=== PATIENT | male | born 2000 | race Caucasian/White ===

== ENCOUNTER 2023-11-04 06:06 | Emergency (ER) | payer BC, SELFPAY ==
[2023-11-04 06:08] VITALS: BP 162/111
[2023-11-04 07:37] VITALS: BMI 36.7
[2023-11-04 07:43] VITALS: BP 139/84
[2023-11-04] MEDS: TORADOL 30 MG IV (07:46)
[2023-11-04] MEDS: ZOFRAN 4 MG IV (07:46)
[2023-11-04 08:00] VITALS: BP 132/94
[2023-11-04 08:16] LABS: % Basophils 0.3 % (0-2); % Eosinophils 0.2 % (0-6); % Immature Granulocytes 0.4 % (0-0.5); % Lymphocytes 9.9 % (20.5-51.1); % Neutrophils 82.2 % (42.2-75.2); Absolute Immature Granulocytes 0.1 10^3/uL (0-0.05); Absolute Lymphocytes 1.2 10^3/uL (1.2-3.4); Absolute Monocytes 0.8 10^3/uL (0.1-0.6); Absolute Neutrophils 9.6 10^3/uL (1.4-6.5); Hematocrit 42.2 % (39.0-52.0); Hemoglobin 14.4 g/dL (13.0-18.0); Mean Corp Hgb Conc. 34.1 g/dL (33.0-37.0); Mean Corpuscular Hgb 29.8 pg (27.0-31.0); Mean Corpuscular Volume 87.4 fL (80.0-94.0); Mean Platelet Volume 8.4 fL (7.4-10.4); Nucleated Red Blood Cells % 0 % (-); Platelet Count 330 10^3/uL (130-400); Red Blood Cell Count 4.83 10^6/uL (4.70-6.10); Red Cell Dist. Width 13.8 % (11.5-14.5); White Blood Cell Count 11.7 10^3/uL (4.8-10.8)
--- NOTE | 2023-11-04 08:21 | ED.GENMED ---
History of Present Illness
General
Chief Complaint: Abdominal Pain
Source: patient
Time Seen by Provider: 11/04/23 07:21
Travel History
Have you had any contact with someone who has COVID-19?: No
Do you have any symptoms of coronavirus? Fever > 100 degrees, chills, cough, shortness of breath, sore throat, loss of taste or smell, muscle aches, or headache?: No
History of Present Illness
History of Present Illness:
22-year-old male presents with left lower abdominal pain starting 2 days ago intermittent since then. Today the pain increased and there was associated vomiting. No flank pain pain starts in the abdomen occasionally radiates to the groin but
denies significant testicular pain. No urinary symptoms. No fever. No other complaints at this time
Phy Exam
Physical Exam
Physical Exam:
General: Well-appearing male no acute respiratory distress
HEENT: Normocephalic atraumatic neck is supple
Heart: Regular rate and rhythm no murmurs
Lungs: Clear to auscultation bilaterally no wheezing
Abdomen: Soft tender to left lower no guarding rebound normal bowel sounds nondistended no costovertebral angle tenderness
exam. Circumcised male. Cremasteric reflex intact bilaterally no testicular swelling or discomfort or tenderness
Extremities: No
Course
Orders/Labs/Results
Orders:
Orders
11/04/23 07:36
Ketorolac [Toradol] 30 mg IV NOW STA
Ondansetron Injectable [Zofran] 4 mg IV NOW STA
11/04/23 07:39
CT Abd/pelvis W Iv Cont Urgent
Comment:
Reason For Exam: llq pain
11/04/23 07:47
Complete Blood Count/With Diff Urgent
Comprehensive Metabolic Panel Urgent
Lipase Urgent
11/04/23 10:03
Urinalysis Reflex To Culture Urgent
Date Specimen was Collected: 11/04/23
Time Specimen was Collected: 09:59
Urine Microscopic Reflex Cult Urgent
Abnormal Lab Results
11/04/23 11/04/23
07:47 10:03
WBC 11.7 H 10^3/uL
(4.8-10.8)
Abs Immat Gran (auto) 0.1 H 10^3/uL
(0-0.05)
Absolute Neuts (auto) 9.6 H 10^3/uL
(1.4-6.5)
Absolute Monos (auto) 0.8 H 10^3/uL
(0.1-0.6)
Neutrophils % 82.2 H %
(42.2-75.2)
Lymphocytes % 9.9 L %
(20.5-51.1)
Glucose 108 H mg/dl
(70-99)
Alkaline Phosphatase 137 H U/L
(38-126)
Ur Occult Blood Reflex 4+ A
(Negative)
Urine RBC 26-30 A /HPF
(0-2)
Urine Bacteria (Reflex) Few A
(Negative)
11/04/23 07:47
11/04/23 07:47
Vital Signs
Initial and Last Documented VS:
Initial Vital Signs
Temp Pulse Resp BP Pulse Ox
97.5 F 65 22 162/111 97
11/04/23 06:08 11/04/23 06:08 11/04/23 06:08 11/04/23 06:08 11/04/23 06:08
Last Documented Vital Signs
Temp Pulse Resp BP Pulse Ox
97.5 F 65 22 145/85 96
11/04/23 06:08 11/04/23 06:08 11/04/23 06:08 11/04/23 09:17 11/04/23 09:45
MDM/Problems Addressed
Differential Diagnosis Includes:
Left lower quadrant abdominal pain. Differential could include diverticulitis versus constipation versus colitis versus renal colic
Check labs and CT. No evidence on exam of testicular torsion
*Critical Care Note
Total Time (30-74mins, 75-104mins- exclusive of procedures): Not Applicable
Update Note
Update Note:
CT demonstrates 3 mm calcification at distal left UVJ causing mild hydronephrosis. Urinalysis negative. Patient comfortable upon reassessment. Advised plenty of fluids Motrin and urine straining. Will be referred to urology if symptoms persist
peer return precautions were given otherwise
ED Attending Note
-
Portions of this chart may have been created with voice recognition software.� Occasional wrong word or��sound alike� substitutions may have occurred due to the inherent limitations of voice recognition software.
Discharge Plan
Departure
Patient Disposition: Home (Routine Discharge)
Date of Disposition: 11/04/23
Time of Disposition: 11:07
Patient with high blood pressure during this ER visit?: No
Discharge Problem:
Kidney stone
Instructions: Kidney Stones (DC)
Prescriptions:
New
ibuprofen 600 mg tablet
600 mg PO Q8H PRN (Reason: Pain) Qty: 14 0RF
ondansetron 4 mg tablet,disintegrating
4 mg PO Q8H PRN (Reason: nausea and vomiting) Qty: 10 0RF
No Action
gabapentin 600 mg Tablet
1,200 mg PO BID
sertraline [Zoloft] 100 mg Tablet
200 mg PO DAILY
aripiprazole [Abilify] 5 mg Tablet
7.5 mg PO DAILY
lisdexamfetamine [Vyvanse] 70 mg Capsule
70 mg PO DAILY
acetaminophen 325 mg Tablet
650 mg PO Q4HPRN PRN (Reason: mild pain/WOODS/temp> 100.4F) Qty: 60 0RF
Referrals:
Zbigniew Gates MD [Family Provider] -
Mane Horta MD [Active] -
Activity Restrictions/Additional Instructions:
Drink plenty liquids. Use medicine as needed for pain or nausea. Strain the urine. Return here for increasing pain persistent vomiting fever or other concerning findings. Follow-up with urology other
Interventions
Interventions:
*Risk Screen - Suicide Last Done: 11/04/23 06:08
*General Assessment Last Done: 11/04/23 07:37
*Neglect/Abuse Screening Last Done: 11/04/23 06:08
ED- Fall Risk Assessment Last Done: 11/04/23 07:37
*ED COVID-19 Vaccine History Last Done: 11/04/23 07:37
GJ-Wvrjep-Sjqdorshsb Assessment Last Done: 11/04/23 07:37
[2023-11-04 08:34] LABS: ALT (SGPT) 44 U/L (0-50); AST (SGOT) 34 U/L (17-59); Albumin 4.2 g/dl (3.5-5.0); Alkaline Phosphatase 137 U/L (38-126); Blood Urea Nitrogen 11 mg/dl (9-20); Calcium 9.5 mg/dl (8.4-10.2); Carbon Dioxide 29 mmol/L (22-30); Chloride 105 mmol/L (98-107); Estimated Creatinine Clearance > 125 ml/min; Glucose 108 mg/dl (70-99); Lipase 33 U/L (23-300); Potassium 4.5 mmol/L (3.5-5.1); Sodium 138 mmol/L (135-145); Total Bilirubin 0.6 mg/dl (0.2-1.3); eGFR > 60.00
[2023-11-04 09:17] VITALS: BP 145/85
[2023-11-04 10:20] LABS: Urine Albumin Negative (Neg - Trace); Urine Bilirubin Negative (Negative); Urine Character Clear (Clear); Urine Color Straw; Urine Glucose Negative (Negative); Urine Ketone Negative (Negative); Urine Leukocyte Negative (Negative); Urine Nitrite Negative (Negative); Urine Occult Blood 4+ (Negative); Urine Specific Gravity 1.015 (<1.030); Urine Urobilinogen Negative (Neg - 1+)
[2023-11-04 10:28] LABS: Urine Calcium Oxalate Crystals Present; Urine Squamous Cell 0-2 /LPF (Few)
[2023-11-04 10:29] LABS: Urine Bacteria Few (Negative); Urine Red Blood Cell 26-30 /HPF (0-2); Urine White Cell 0-2 /HPF (0-5)
== END 2023-11-04 11:49 | disposition home or self-care (01) ==
LOC: EMR 06:06
PROVIDERS: Physician Assistant; EMERGENCY PHYSICIAN Emergency Medicine; FAMILY PHYSICIAN Family Medicine
DX: N13.2 Hydronephrosis with renal and ureteral calculous obstruction (principal); R11.10 Vomiting, unspecified
CPT/HCPCS: 99285; 96375; 96374; 74177; 80053; 81003; 81015; 83690; 85025; Q9967